=== PATIENT | male | born 1990 | race African-American/Black ===

== ENCOUNTER 2018-01-29 14:33 | Emergency (ER) | payer OTHER ==
[2018-01-29] MEDS ORDERED: Ondansetron ODT TAB* 4 MG ONE (15:36)
[2018-01-29] MEDS ORDERED: Ondansetron ODT TAB* 4 MG PO ONE (15:37)
--- NOTE | 2018-01-29 15:52 | ED ---
Substance Abuse/Use - HPI Summary HPI Summary: This patient is a 27 year old M presenting to [facility] accompanied by mother with a chief complaint of substance abuse since 1200. Pt claims he smoked spice (synthetic marijuana), which he used to smoke every day for about a month, but has recently stopped until now. Pt endorses malaise, anxiety, nausea, severe cramps, and several emetic episodes. PMHx anxiety, depression, and substance abuse. Pt denies SI, chest pain, using cocaine. Pt purchases spice from a dealer, and is unsure what chemicals are inside of it; he fears it may have been cut with rat poison. - History Of Current Complaint Chief Complaint: EDSubstanceAbuse Stated Complaint: OVERDOSE Time Seen by Provider: 01/29/18 15:11 Hx Obtained From: Patient, Family/Vessel Ordinary [place] Onset/Duration of Drug/ETOH Abuse: Years Ingestion History: Type/Name Of Drug - "spice": synthetic marijuana, Approximate Time Of Ingestion - 1200 Overdose Characteristics: Inhalation Timing Of Abuse: Daily Severity Initially: Moderate Severity Currently: Moderate Character: Anxious Aggravating Factor(s): Nothing Alleviating Factor(s): Nothing Associated Signs And Symptoms: Tremulous, Nausea, Vomiting, Intentional Ingestion Related Hx: Drug/Alcohol Last Used @ - 1200, Possible Multi Drug Ingestion, Prior Drug Abuse Counseling/Admission - Allergies/Home Medications Allergies/Adverse Reactions: Allergies Allergy/AdvReac Type Severity Reaction Status Date / Time No Known Allergies Allergy Verified 01/29/18 14:49 Home Medications: Home Medications PARoxetine HCl [Paxil] 10 mg PO DAILY 01/29/18 [History Confirmed 01/29/18] PMH/Surg Hx/FS Hx/Imm Hx Sensory History: Denies: Hx Contacts or Glasses, Hx Legally Blind, Hx Deafness Opthamlomology History: Denies: Hx Contacts or Glasses, Hx Legally Blind EENT History: Denies: Hx Deafness Neurological History: Denies: Hx CVA Psychiatric History: Reports: Hx Anxiety, Hx Depression, Hx Substance Abuse Infectious Disease History: No Infectious Disease History: Denies: Traveled Outside the [place] in Last 30 Days - Family History Known Family History: Positive: Unknown - adopted - Social History Occupation: Employed Full-time Alcohol Use: None Hx Substance Use: Yes Substance Use Type: Reports: Cocaine, Marijuana, Synthetic Drugs - "spice", Prescribed Substance Use Comment - Amount & Last Used: Spice Hx Tobacco Use: Yes Smoking Status (MU): Light Every Day Tobacco Smoker Type: Cigarettes Review of Systems Positive: Other - tremors. Negative: Fever Negative: Chest Pain Positive: Abdominal Pain, Vomiting, Nausea Positive: Anxious. Negative: Other - SI All Other Systems Reviewed And Are Negative: Yes Physical Exam - Summary Physical Exam Summary: Appearance: well appearing, no pain distress, tremulous Skin: warm, dry, reflects adequate perfusion Head/face: normal Eyes: EOMI, BALDO ENT: normal Neck: supple, non-tender Respiratory: CTA, breath sounds present Cardiovascular: RRR, pulses symmetrical Abdomen: non-tender, soft Bowel: present Musculoskeletal: normal, strength/ROM intact Neuro: normal, sensory motor intact, A&Ox3 Psych: anxious affect Triage Information Reviewed: Yes Vital Signs On Initial Exam: Initial Vitals Temp Pulse Resp BP Pulse Ox 98.7 F 73 16 127/91 98 01/29/18 14:35 01/29/18 14:35 01/29/18 14:35 01/29/18 14:35 01/29/18 14:35 Vital Signs Reviewed: Yes Diagnostics - Vital Signs Vital Signs Temp Pulse Resp BP Pulse Ox 01/29/18 14:35 98.7 F 73 16 127/91 98 - Laboratory Result Diagrams: 01/29/18 15:50 01/29/18 15:51 Lab Statement: Any lab studies that have been ordered have been reviewed, and results considered in the medical decision making process. - EKG 553 Cardiac Rate: NL - 61 EKG Rhythm: Sinus Rhythm EKG Comparison: No Significant Change Re-Evaluation - Re-Evaluation First Eval Re-Evaluation Time: 18:05 Change: Improved Comment: discussed discharge, dx, pt is alert and oriented, will leave for home with mother. Course/Dx - Course Course Of Treatment: A 27-year-old M presents to the ED with a CC of substance abuse for. (+) N/V, abd pain, cramping, tremors, anxiety, malaise. (-) SI, CP. PMHx anxiety and depression. An EKG reveals nl sinus rythym of 61 BPM with no significant changes. In the ED course, pt was given zofran - Diagnoses Differential Diagnosis/HQI/PQRI: Positive: Alcohol Abuse, Anxiety, Drug Abuse Provider Diagnoses: Substance abuse Discharge - Sign-Out/Discharge Documenting (check all that apply): Patient Departure - discharge - Discharge Plan Condition: Stable Disposition: HOME Patient Education Materials: Polysubstance Abuse (ED) Referrals: Romina Tovar MD [Primary Care Provider] - 3 Days Additional Instructions: RETURN TO THE EMERGENCY DEPARTMENT FOR ANY NEW OR WORSENING SYMPTOMS. - Billing Disposition and Condition Condition: STABLE Disposition: Home
[2018-01-29 15:58] LABS: ABS Basophils 0.1 10^3/ul (0-0.2); ABS Eosinophils 0 10^3/ul (0-0.6); ABS Monocytes 0.4 10^3/ul (0-0.8); ABS Neutrophils 7.9 10^3/ul (1.5-7.7); ABS Nucleated RBC 0 10^3/ul; Eosinophil % 0.1 % (0-6); Hematocrit 44 % (42-52); Hemoglobin 15.1 g/dl (14.0-18.0); Lymphocyte % 10.6 % (25-47); Mean Corpuscular HGB Conc 35 g/dl (31-36); Mean Corpuscular Hemoglobin 29 pg (27-31); Mean Corpuscular Volume 83 fL (80-94); Mean Platelet Volume 9.4 um3 (7.4-10.4); Nucleated Red Blood Cells % 0.2; Platelet Count 240 10^3/ul (150-450); Red Blood Count 5.24 10^6/ul (4.00-5.40); Red Cell Distribution Width 13 % (10.5-15); White Blood Count 9.3 10^3/ul (3.5-10.8)
[2018-01-29 16:15] LABS: EGFR Non-African American 96.6 (>60)
[2018-01-29 16:26] LABS: Urine Appearance Clear; Urine Blood Negative (Negative); Urine Color Yellow; Urine Ketones 1+ (Negative); Urine Protein Negative (Negative); Urine Specific Gravity 1.006 (1.010-1.030); Urine Urobilinogen Negative (Negative)
[2018-01-29 17:57] VITALS: BP 113/67
== END 2018-01-29 18:15 | disposition home or self-care (01) ==
LOC: ED 14:33
DX: F19.10 Other psychoactive substance abuse, uncomplicated (principal); F41.8 Other specified anxiety disorders; F17.210 Nicotine dependence, cigarettes, uncomplicated
CPT/HCPCS: 36415; 80053; 80307; 80320; 80329; 81003; 82550; 84443; 84484; 85025; 93005; 99282; A9270-GY; G0480